=== PATIENT | female | born 1990 | race Caucasian/White ===

== ENCOUNTER 2018-05-19 10:50 | Observation (INO) | payer MEDICAID, OTHER ==
[~2018-05-19] VITALS: Ht 167.6 cm; Wt 77.1 kg
[~2018-05-19 10:50] MED LIST: FERR325E14 PO; IBUP-974 PO
[2018-05-19] MEDS ORDERED: PREN-380 PO (11:26)
[2018-05-19 11:29] VITALS: BP 137/82
[2018-05-19 14:03] LABS: BILIRUBIN,URINE NEGATIVE (NEGATIVE); COLOR,URINE YELLOW (YELLOW); LEUKOCYTE ESTERASE ,URINE 1+ (NEGATIVE); NITRITE, URINE POSITIVE (NEGATIVE); UGLUCOSE NEGATIVE (NEGATIVE)
[2018-05-19 14:07] LABS: BLOOD, URINE TRACE (NEGATIVE); RBC,URINE 3-10 (FEW) /HPF (0-5)
[2018-05-19 14:08] LABS: APPEARANCE,URINE HAZY (CLEAR); WBC,URINE 6-15 (FEW) /HPF (0-5)
[2018-05-19 14:10] LABS: BARBITURATE, URINE NEG. ng/ml (NEG <=200); BENZODIAZEPINE, URINE NEG. ng/mL (NEG <=200); CANNABINOID, URINE NEG. ng/mL (NEG <=50); COCAINE, URINE NEG. ng/mL (NEG <=300); OPIATE, URINE NEG. ng/mL (NEG <=2000); PHENCYCLIDINE SCREEN,URINE NEG. ng/mL (NEG <=25)
== END 2018-05-19 14:25 | disposition home or self-care (01) ==
LOC: MLD 10:50
PROVIDERS: ADMIT Obstetrics & Gynecology; ATTEND Obstetrics & Gynecology
DX: O36.8120 Decreased fetal movements, second trimester, not applicable or unspecified (principal); Z3A.25 25 weeks gestation of pregnancy
CPT/HCPCS: 76805; 80305; 81001; 87086; G0378; Q0092; 87186